=== PATIENT | female | born 1940 | race Caucasian/White ===

== ENCOUNTER 2017-05-01 21:16 | Observation (INO) | payer OTHER ==
--- NOTE | 2017-05-01 21:28 | CPEKG ---
Heart Rate: 58 RR Interval: 1034 P-R Interval: 168 QRSD Interval: 76 QT Interval: 436 QTC Interval: 429 P [place]: 58 QRS [place]: 50 T Wave [place]: 73 EKG Severity - NORMAL ECG - EKG Impression: SINUS RHYTHM Electronically Signed By: Grupo Rodriguez 04-May-2017 06:11:07
--- NOTE | 2017-05-01 21:40 | EDPHY ---
H & P Stated Complaint: HEARTBURN LIKE CHEST PAIN 20;30 TOOK NTG X1 NOW GONE HX OF ANGINA HPI/ROS: HPI CHIEF COMPLAINT: Chest pain relieved by nitroglycerin HISTORY OF PRESENT ILLNESS: This patient very pleasant 76-year-old female significant past medical history for coronary artery disease with stents she has 3 stents [place] [address] Kirk she presents to the emergency room as around 830 this evening she was packing her suitcase for recent trip to [place]. She states she has been very stressed recently her sister recently from an [place]. She has been stressed. She developed some chest discomfort in the substernal region he did radiate to her back. She describes a dull ache pressure sensation. Last 5-10 minutes. He was relieved by nitroglycerin. She tells me this feels similar to her previous angina. She now presents to the emergency room she is chest pain-free. She has no complaints at this time. She feels well. She is questioning if she needs to be here. She does not normally take nitroglycerin. Past Medical History: Coronary artery disease with stents Past Surgical History: PTCA Social History: Denies daily use of drugs alcohol tobacco products. Lives locally. Family History: Noncontributory ROS REVIEW OF SYSTEMS: A comprehensive 10 point review of systems is otherwise negative aside from elements mentioned in the history of present illness. Exam Constitutional appears well nontoxic, triage nursing summary reviewed, vital signs reviewed, awake/alert. Eyes normal conjunctivae and sclera, EOMI, PERRLA. HENT normal inspection, atraumatic, moist mucus membranes, no epistaxis, neck supple/ no meningismus, no raccoon eyes. Respiratory clear to auscultation bilaterally, normal breath sounds, no respiratory distress, no wheezing. Cardiovascular rate normal, regular rhythm, no murmur, no edema, distal pulses normal. Gastrointestinal soft, non-tender, no rebound, no guarding, normal bowel sounds, no distension, no pulsatile mass. Genitourinary no CVA tenderness. Musculoskeletal no midline vertebral tenderness, full range of motion, no calf swelling, no tenderness of extremities, no meningismus, good pulses, neurovascularly intact. Skin pink, warm, & dry, no rash, skin atraumatic. Neurologic awake, alert and oriented x 3, AAOx3, moves all 4 extremities equally, motor intact, sensory intact, CN II-XII intact, normal cerebellar, normal vision, normal speech. Psychiatric normal mood/affect. Heme/Lymph/Immune no lymphadenopathy. Differential diagnosis includes but is not limited to: ACS, atypical chest pain , pneumothorax, pneumonia, pulmonary embolism, aortic dissection, congestive heart failure, tumor, musculoskeletal pain, esophageal pain, GERD, peptic ulcer disease, pancreatitis Medical Decision Making: Plan for this patient full [employer], IV establishment, full-dose aspirin, she is chest pain-free at this time. Chest x- ray. Rule out acute coronary syndrome. Re-evaluation: EKG interpretation by me on record in [facility] system. Impression time of EKG 2125, sinus rhythm rate of 58, there is no acute ischemic change appreciated. Specifically no ST elevation ST depression or significant T-wave abnormalities. 2157: Plan for this patient rule out acute coronary syndrome. She is chest pain-free at this time. She will receive full-dose aspirin. 3: I spoke with the patient she agrees for admission overnight. Her EKG is nonischemic. Negative troponin. Chest x-ray has been reviewed. She is not having pleuritic pain. She is hemodynamically stable this time without chest pain. She agrees for admission. I spoke with the hospitalist service Dr. Harden. The hospitalist service agrees to admit this patient. Reason for admission chest pain with risk factors. Risk factors are underlying coronary artery disease with 3 stents. She is chest pain-free at this time. Chest pain-free at admission. Source: Patient - Personal History Current Tetanus/Diphtheria Vaccine: Yes Current Tetanus Diphtheria and Acellular Pertussis (TDAP): Yes Tetanus Vaccine Date: 2008 - Medical/Surgical History Hx Asthma: No Hx Chronic Respiratory Disease: No Hx Diabetes: No Hx Cardiac Disease: Yes Hx Renal Disease: No Hx Cirrhosis: No Hx Alcoholism: No Hx HIV/AIDS: No Hx Splenectomy or Spleen Trauma: No Other PMH: cholesterol. 3 cardiac stents in LED. l knee meniscus repair. Insulin Resistance - Social History Smoking Status: Never smoked Constitutional: Initial Vital Signs Temperature (C) 36.6 C 05/01/17 21:20 Heart Rate 54 L 05/01/17 21:20 Respiratory Rate 16 05/01/17 21:20 Blood Pressure 161/77 H 05/01/17 21:20 O2 Sat (%) 93 05/01/17 21:20 O2 Delivery Mode Room Air Allergies/Adverse Reactions: No Known Allergies Allergy (Verified 05/01/17 21:34) Home Medications: Medication Instructions Recorded Aspirin [Aspirin 81mg (*)] 81 mg PO DAILY 02/16/14 Herbals/Supplements -Info Only 1 ea PO DAILY 02/16/14 Carvedilol [Coreg (*)] 3.125 mg PO DAILY 03/03/14 Ezetimibe 10 mg PO DAILY 05/01/17 Nitroglycerin 0.4 mg SL TIDNITRATE PRN 05/02/17 Medical Decision Making - Data Points Laboratory Results: Laboratory Results 05/01/17 21:32 05/01/17 21:32 Medications Given: Discontinued Medications Aspirin Buffered (Aspirin Ec) 325 mg PO EDNOW ONE Stop: 05/01/17 22:00 Last Admin: 05/01/17 22:24 Dose: 325 mg Trazodone HCl (Trazodone) 50 mg PO HS PRN PRN Reason: Sleep/Insomnia Stop: 10/29/17 00:42 Last Admin: 05/02/17 00:57 Dose: 50 mg Departure - [facility] Clinical Impression: Chest pain Qualifiers: Chest pain type: unspecified Qualified Code(s): R07.9 - Chest pain, unspecified Condition: Fair
[2017-05-01 21:41] LABS: % IMMATURE GRANULYOCYTES 0.2 % (0.0-1.1); ABSOLUTE IMMATURE GRANULOCYTES 0.01 10^3/uL (0.00-0.10); ADD DIFF? NO; ADD MORPH? NO; ADD SCAN? NO; ATYPICAL LYMPHOCYTE FLAG 0 (0-99); FRAGMENT RBC FLAG 0 (0-99); HEMATOCRIT 40.8 % (38.0-47.0); HEMOGLOBIN 14.2 g/dL (12.6-16.3); LEFT SHIFT FLG 0 (0-99); LIPEMIA HEMOLYSIS FLAG 90 (0-99); MEAN CELL HEMOGLOBIN 33.5 pg (27.9-34.1); MEAN CELL HEMOGLOBIN CONCENTR. 34.8 g/dL (32.4-36.7); MEAN CELL VOLUME 96.2 fL (81.5-99.8); MEAN PLATELET VOLUME 9.9 fL (8.7-11.7); PLATELET CLUMPS FLAG 0 (0-99); PLATELET COUNT 163 10^3/uL (150-400); RED BLOOD CELL COUNT 4.24 10^6/uL (4.18-5.33); RED CELL DISTRIBUTION WIDTH 12.4 % (11.5-15.2)
[2017-05-01 21:51] LABS: ANION GAP 11 mEq/L (8-16); CALCIUM 9.7 mg/dL (8.5-10.4); CARBON DIOXIDE 25 mEq/l (22-31); CHLORIDE 104 mEq/L (97-110); CREATININE 0.8 mg/dL (0.6-1.0); GLOMERULAR FILTRATION RATE > 60; GLUCOSE 111 mg/dL (70-100); SODIUM 140 mEq/L (134-144)
[2017-05-01] MEDS ORDERED: ASPIRIN EC 325 MG TAB PO ONE (21:59)
[2017-05-01 22:02] LABS: TROPONIN I < 0.012 ng/mL (0-0.034)
[2017-05-02] MEDS ORDERED: ONDANSETRON 4 MG/2 ML VIAL IVP PRN (00:38)
[2017-05-02] MEDS ORDERED: ACETAMINOPHEN 325 MG TAB PO PRN (00:38)
[2017-05-02] MEDS ORDERED: ONDANSETRON DISINTEGRATING 4 MG TAB PO PRN (00:38)
[2017-05-02] MEDS ORDERED: NITROGLYCERIN 0.4 MG BTL SL PRN ×2 (00:41→13:37)
[2017-05-02] MEDS ORDERED: traZODone 100 MG TAB PO PRN (00:43)
--- NOTE | 2017-05-02 02:18 | PDGENHP ---
History and Physical - Chief Complaint Chest pain - History of Present Illness 76 yo F w/ hx of CAD presenting after episode of chest pain. She was packing a suitcase today and noticed acute onset of mid-sternal chest pain. She rated this as 5/10 severity, described it as needle-like, and had no associated radiation, diaphoresis, or shortness of breath. The pain lasted 2-3 minutes until she took a nitroglycerin and the pain immediately resolved. She has been experiencing increased emotional stress due to the recent of her sister from an [place]. She denies prior hx of [place]. In 2013 she began to experience anginal symptoms and then had an abnormal stress echo, leading to an angiogram and the placement of 3 cardiac stents. Since, he denies any anginal symptoms prior to today's episode. She is currently chest pain free and received ASA 324 mg in the ED. History Information - Allergies/Home Medication List Allergies/Adverse Reactions: No Known Allergies Allergy (Verified 05/01/17 21:34) Home Medications: Aspirin [Aspirin 81mg (*)] 81 mg PO DAILY 02/16/14 [Last Taken 04/28/15] Herbals/Supplements -Info Only 1 ea PO DAILY 02/16/14 [Last Taken 02/15/14] Carvedilol [Coreg (*)] 3.125 mg PO DAILY 03/03/14 [Last Taken 04/28/15] Ezetimibe 10 mg PO 05/01/17 [Last Taken Unknown] I have personally reviewed and updated: family history, medical history - Past Medical History coronary artery disease - Surgical History Reports: no pertinent surgical hx - Family History Positive for: CAD - Social History Smoking Status: Never smoked Alcohol Use: None Drug Use: None Review of Systems ROS: 10pt was reviewed & negative except for what was stated in HPI & below Physical Exam Temp Pulse Resp BP Pulse Ox 36.5 C 56 L 16 143/75 H 93 05/02/17 00:05 05/02/17 00:05 05/02/17 00:05 05/02/17 00:05 05/02/17 00:05 Constitutional: no apparent distress, appears nourished Eyes: PERRL, EOMI Ears, Nose, Mouth, Throat: moist mucous membranes, no oral mucosal ulcers Cardiovascular: regular rate and rhythym, no murmur, rub, or gallop Respiratory: no respiratory distress, clear to auscultation Gastrointestinal: normoactive bowel sounds, soft, non-tender abdomen Skin: warm, no rashes or abrasions Musculoskeletal: full muscle strength, no muscle tenderness Neurologic: AAOx3, CN II-XII Intact Psychiatric: interacting appropriately, not anxious Lab Data & Imaging Review 05/01/17 21:32 05/01/17 21:32 WBC 5.86 10^3/uL (3.80-9.50) 05/01/17 21:32 RBC 4.24 10^6/uL (4.18-5.33) 05/01/17 21:32 Hgb 14.2 g/dL (12.6-16.3) 05/01/17 21:32 Hct 40.8 % (38.0-47.0) 05/01/17 21:32 MCV 96.2 fL (81.5-99.8) 05/01/17 21:32 MCH 33.5 pg (27.9-34.1) 05/01/17 21:32 MCHC 34.8 g/dL (32.4-36.7) 05/01/17 21:32 RDW 12.4 % (11.5-15.2) 05/01/17 21:32 Plt Count 163 10^3/uL (150-400) 05/01/17 21:32 MPV 9.9 fL (8.7-11.7) 05/01/17 21:32 Neut % (Auto) 43.5 % (39.3-74.2) 05/01/17 21:32 Lymph % (Auto) 44.5 % (15.0-45.0) 05/01/17 21:32 C[place]ay % (Auto) 8.0 % (4.5-13.0) 05/01/17 21:32 Eos % (Auto) 2.9 % (0.6-7.6) 05/01/17 21:32 Baso % (Auto) 0.9 % (0.3-1.7) 05/01/17 21:32 Nucleat RBC Rel Count 0.0 % (0.0-0.2) 05/01/17 21:32 Absolute Neuts (auto) 2.55 10^3/uL (1.70-6.50) 05/01/17 21:32 Absolute Lymphs (auto) 2.61 10^3/uL (1.00-3.00) 05/01/17 21:32 Absolute Monos (auto) 0.47 10^3/uL (0.30-0.80) 05/01/17 21:32 Absolute Eos (auto) 0.17 10^3/uL (0.03-0.40) 05/01/17 21:32 Absolute Basos (auto) 0.05 10^3/uL (0.02-0.10) 05/01/17 21:32 Absolute Nucleated RBC 0.00 10^3/uL (0-0.01) 05/01/17 21:32 Immature Gran % 0.2 % (0.0-1.1) 05/01/17 21:32 Immature Gran # 0.01 10^3/uL (0.00-0.10) 05/01/17 21:32 Sodium 140 mEq/L (134-144) 05/01/17 21:32 Potassium 4.0 mEq/L (3.5-5.2) 05/01/17 21:32 Chloride 104 mEq/L (97-110) 05/01/17 21:32 Carbon Dioxide 25 mEq/l (22-31) 05/01/17 21:32 Anion Gap 11 mEq/L (8-16) 05/01/17 21:32 BUN 23 mg/dL (7-23) 05/01/17 21:32 Creatinine 0.8 mg/dL (0.6-1.0) 05/01/17 21:32 Estimated GFR > 60 05/01/17 21:32 Glucose 111 mg/dL (70-100) H 05/01/17 21:32 Calcium 9.7 mg/dL (8.5-10.4) 05/01/17 21:32 Troponin I < 0.012 ng/mL (0-0.034) 05/01/17 21:32 EKG Interpretation: Positive for: normal sinsus rhythm (No signs of ischemia) Assessment & Plan Assessment: 76 yo F w/ hx of CAD presenting with single episode of typical chest pain. Plan: 1. Typical chest pain - Sub-sternal, during period of emotional stress, and relieved with nitroglycerin. This is somewhat concerning noting patient denies any anginal symptoms over the last 3 years since placement of her cardiac stents. ECG and troponin on arrival to the ED unremarkable, although only 1-2 hours after episode of pain. - S/p ASA 324 in ED - Monitor on telemetry - Will not anticoagulate currently noting chest pain free and no objective evidence of ischemia - NPO @ [facility], cardiology consult in the AM - Nitro PRN ordered 2. Hx of CAD - With 3 stents placed in 2013 after abnormal stress echocardiogram. Denies prior hx of MIs. On BB, ASA, and ezetimibe as outpatient. Diet - NPO Ppx - LMWH Code - Full Dispo - Admit to observation
[2017-05-02 07:45] LABS: % IMMATURE GRANULYOCYTES 0.2 % (0.0-1.1); ABSOLUTE IMMATURE GRANULOCYTES 0.01 10^3/uL (0.00-0.10); ADD DIFF? NO; ADD MORPH? NO; ADD SCAN? NO; ATYPICAL LYMPHOCYTE FLAG 10 (0-99); FRAGMENT RBC FLAG 0 (0-99); HEMATOCRIT 39.9 % (38.0-47.0); HEMOGLOBIN 13.7 g/dL (12.6-16.3); LEFT SHIFT FLG 0 (0-99); LIPEMIA HEMOLYSIS FLAG 90 (0-99); MEAN CELL HEMOGLOBIN 33.3 pg (27.9-34.1); MEAN CELL HEMOGLOBIN CONCENTR. 34.3 g/dL (32.4-36.7); MEAN CELL VOLUME 97.1 fL (81.5-99.8); PLATELET CLUMPS FLAG 20 (0-99); PLATELET COUNT 147 10^3/uL (150-400); RED BLOOD CELL COUNT 4.11 10^6/uL (4.18-5.33); RED CELL DISTRIBUTION WIDTH 12.5 % (11.5-15.2)
[2017-05-02 07:58] LABS: ANION GAP 9 mEq/L (8-16); CALCIUM 9.3 mg/dL (8.5-10.4); CARBON DIOXIDE 24 mEq/l (22-31); CHLORIDE 109 mEq/L (97-110); CREATININE 0.6 mg/dL (0.6-1.0); GLOMERULAR FILTRATION RATE > 60; GLUCOSE 99 mg/dL (70-100); MAGNESIUM 2.1 mg/dL (1.6-2.3); POTASSIUM 4.1 mEq/L (3.5-5.2); SODIUM 142 mEq/L (134-144)
[2017-05-02 08:09] LABS: TROPONIN I < 0.012 ng/mL (0-0.034)
[2017-05-02] MEDS: ENOXAPARIN 40 MG/0.4 ML SYR SC SCH (09:42)
--- NOTE | 2017-05-02 10:46 | HOSPPROG ---
Hospitalist Progress Note Assessment/Plan: 76-year-old admitted with chest pain. This is similar to her previous angina prior to her stents 3 years ago. Patient discussed with Dr. Kirk who plans on doing a angiogram today. Disposition will depend on those results. Objective: Vital Signs Temp Pulse Resp BP Pulse Ox 36.6 C 50 L 16 129/51 H 94 05/02/17 07:38 05/02/17 07:38 05/02/17 07:38 05/02/17 07:38 05/02/17 07:38 Laboratory Results 05/02/17 07:00 05/02/17 07:00 05/01/17 05/02/17 05/03/17 05:59 05:59 05:59 Intake Total 200 Balance 200 - Physical Exam Constitutional: no apparent distress Cardiovascular: regular rate and rhythym Respiratory: no respiratory distress, clear to auscultation ICD10 Worksheet Patient Problems: Problems Problem Status Onset Chest pain Acute
[2017-05-02] MEDS ORDERED: LIDOCAINE 1% 300 MG/30 ML SDV ONE (12:20)
[2017-05-02] MEDS ORDERED: IOPAMIDOL (ISOVUE-370) 150 ML BTL IV ONE (12:20)
[2017-05-02] MEDS ORDERED: MIDAZOLAM 2 MG/2 ML VIAL ONE (12:20)
[2017-05-02] MEDS ORDERED: fentaNYL 100 MCG/2 ML INJ ONE (12:20)
[2017-05-02] MEDS ORDERED: ADENOSINE 90 MG/30 ML VIAL IV ONE (13:16)
[2017-05-02] MEDS ORDERED: BIVALIRUDIN 250 MG/5 ML VIAL IV ONE (13:16)
[2017-05-02] MEDS ORDERED: ATROPINE SULFATE 1 MG/10 ML SYR ONE (13:27)
--- NOTE | 2017-05-02 14:40 | GCON ---
[f rep st] CONSULTATION DATE OF CONSULTATION: 05/02/2017 REFERRING PHYSICIAN: Nancie Miller MD REASON FOR CONSULTATION: We have been asked by Dr. Miller to evaluate the patient with a chief compla int of chest pain. HISTORY OF PRESENT ILLNESS: The patient is a 76-year-old female with known coronary artery disease who presents with a chief complaint of chest pain. The patient was in her usual state of health unt il the day of admission, when she began to experience chest pain. The chest pain was described as a discomfort located over the left side of her chest. The chest pain did not radiate and was not ass ociated with nausea, vomiting, or diaphoresis. The patient took nitroglycerin with resolution of he r symptoms. She has not had recurrent chest pain. The patient states the chest pain is somewhat si milar to her previous anginal symptoms in 2013. However, it was not as severe as her previous angin al symptoms and it did not radiate into her left arm as it did before. The patient has been under c onsiderable amount of stress recently as her sister from a myocardial infarction. She i s planning on traveling to [place] for her services. The patient was active up until the [facility] and denied symptoms of angina with that activity . No history of orthopnea or PND. No palpitati ons. The patient has been taking her medications. PAST MEDICAL HISTORY: 1. Coronary artery disease. 2. Hypertension. 3. Hyperlipidemia. MEDICATIONS: Please see medicine reconciliation form. SOCIAL HISTORY: The patient has been under a fair amount of stress recently. She does not smoke. She denies problems with alcohol. REVIEW OF SYSTEMS: A 10-point review of systems is negative, except as noted in HPI. PHYSICAL EXAMINATION: GENERAL: The patient is resting comfortably in bed. She does not appear to be in acute distress. VITAL SIGNS: Temperature is afebrile. Pulse is 50. Blood pressure is 129/5 1. Respiratory rate is 16. SaO2 is 94% on room air. HEENT: Normocephalic, atraumatic. Extraocul ar muscles are intact. NECK: No JVD. No bruits. LUNGS: Clear to auscultation bilaterally. CARD IOVASCULAR: Regular rate and rhythm S1 and S2. Grade 2/6 systolic ejection murmur is noted at the left sternal border. ABDOMEN: Soft, nontender. Normoactive bowel sounds. No hepatosplenomegaly n oted. EXTREMITIES: No clubbing, cyanosis, or edema. SKIN: No evidence of rash. NEUROLOGICAL: T he patient is awake, alert, and oriented x3. LABORATORY DATA: White blood cell count 4.79, hemoglobin 13.7, hematocrit 39.9, platelet count 147. Sodium 142, potassium 4.1, chloride 109, CO2 24, BUN 20, creatinine 0.6. Troponin within normal l imits x2. EKG demonstrates sinus rhythm, normal axis, normal intervals. No significant ST or T-wav e changes. ASSESSMENT AND PLAN: The patient is a 76-year-old female with known coronary artery disease who pre sents with an episode of chest pain relieved by nitroglycerin. Her symptoms are similar to her prev ious angina in some respects but different in other respects. Her initial EKG demonstrates no acute ST or T-wave changes. Her troponin is within normal limits x2. I reviewed options for risk strati fication including stress testing and cardiac catheterization. The patient wishes to pursue cardiac catheterization. We will arrange to have this performed. Risks and benefits were discussed. /[id number]/MODL
--- NOTE | 2017-05-02 15:21 | CPIP ---
[f rep st] INVASIVE CARDIAC PROCEDURE DATE OF PROCEDURE: 05/02/2017 PROCEDURE: 1. Coronary angiography. 2. Left ventriculography. 3. FFR of the circumflex coronary artery. INDICATION: 1. Known coronary artery disease. 2. Acute coronary syndrome with negative troponin. ACCESS: The patient was prepped and draped in sterile fashion. 1% lidocaine was used to anesthetiz e the right inguinal region. A 6-Finnish introducer sheath was placed selectively in the right commo n femoral artery via modified Seldinger technique. CORONARY ANGIOGRAPHY: A 6-Finnish JL4 was advanced through the left main coronary artery and images obtained. The left main coronary artery bifurcated into an LAD and circumflex coronary arteries. T he left main coronary artery appeared normal. The left anterior descending coronary artery gave ris e to one prominent branching diagonal artery. The left anterior descending coronary artery had mild diffuse disease throughout. In the proximal mid vessel, previously placed stents can be seen. The previously placed stents are widely patent with mild in-stent restenosis. The first diagonal arter y is a moderate-sized vessel. The first diagonal artery is approximately 2 mm in diameter. The fir st diagonal artery has an ostial 70% to 75% stenosis present. This does not appear to be significan tly changed from the 2014 study. The circumflex coronary artery is a moderate-sized vessel. The ci rcumflex coronary artery is nondominant. Circumflex coronary artery has a proximal 50% to 70% steno sis present. This appears to have changed from 2014. A 6-Finnish JR4 was advanced to the right coronary artery and images obtained. The right coronary ar lorena was dominant. The right coronary artery is diffusely diseased. In the mid vessel, there is seq uential 30% to 40% stenosis present. The PDA had an ostial 70% stenosis present. The PDA is a rela tively is a small to moderate size vessel, approximately 1.5 to 2 mm in diameter. This is not signi ficantly changed from the 2014 study. LEFT VENTRICULOGRAPHY: A 6-Finnish pigtail catheter was advanced in the left ventricle and images ob tained. Left ventricle was normal in size, had normal systolic function. Estimated ejection fracti on was 70%. FFR OF THE CIRCUMFLEX CORONARY ARTERY: A 6-Finnish JL4 was advanced to the left main coronary artery and images obtained. Angiography confirmed the presence of intermediate grade disease involving th e proximal circumflex coronary artery. An FFR wire was placed in the distal vessel and position yancy ified by angiography. FFR was obtained after IV adenosine infusion. The FFR was 0.93, indicating n o flow limitation. COMPLICATIONS: None. CONCLUSIONS: 1. Patent LAD stents with mild in-stent restenosis. 2. 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 3. 50% to 70% stenosis of the proximal circumflex coronary artery with no evidence of flow limitati on by FFR. 4. Normal left ventricular size and systolic function. 5. Plan is for medical management. /[id number]/MODL
[2017-05-02] MEDS ORDERED: ZOLPIDEM TARTRATE 5 MG TAB PO PRN (18:41)
[2017-05-02] MEDS ORDERED: CANN-EASE 2 GM TUBE TP PRN (20:40)
[2017-05-02] MEDS ORDERED: diphenhydrAMINE 25 MG CAP PO PRN (20:40)
[2017-05-02] MEDS ORDERED: POLYETHYLENE GLYCOL 3350 17 GM PKT PO PRN (21:05)
[2017-05-03 07:35] VITALS: BP 147/75; PULSE 59; RESP 12; TEMP 98.2; O2SAT 93
[2017-05-03] MEDS: ENOXAPARIN 40 MG/0.4 ML SYR SC SCH (08:42)
[2017-05-03] MEDS ORDERED: ASPIRIN 81 MG CHEWABLE TAB PO SCH (09:00)
[2017-05-03] MEDS ORDERED: CARVEDILOL 3.125 MG TAB PO SCH (09:00)
[2017-05-03] MEDS ORDERED: EZETIMIBE 10 MG TAB PO SCH (09:00)
--- NOTE | 2017-05-03 09:22 | GDS ---
[f rep st] DISCHARGE SUMMARY DIAGNOSES: Chest pain in the setting of coronary artery disease. CONSULTATIONS: Cardiology. PROCEDURES DONE: Left heart catheterization, left ventriculography, and FFR of the circumflex coron rolan artery. Patent LAD stents with mild in-stent stenosis, intermediate branch vessel disease, foll owing the 1st diagonal artery and the PDA, that has not changed from 2014, and 50%-70% stenosis of t he proximal circumflex coronary artery with no evidence of flow limitation by FFR. Normal systolic function. HOSPITAL COURSE: The patient is a 76-year-old with a history of heart disease, who had stents place d previously. She is followed by Dr. Kirk as an outpatient. She comes in with an episode of ches t pain quite similar to her previous angina. She was admitted to the hospital, monitored overnight, and ruled out for [facility] with serial troponins. She went to the slab inspector with the above findings. She had no further chest pain during her hospitalization and will be discharged home with close followu p. CONDITION ON DISCHARGE: Good. Vital signs are stable. She is alert and oriented. No chest pain. DISCHARGE MEDICATIONS: Please see discharge medication form. FOLLOWUP: Dr. Krik when she returns from [place]. /[id number]/MODL
== END 2017-05-03 10:01 | disposition home or self-care (01) ==
LOC: F2W 05-02 00:16
PROVIDERS: ADMIT Student in an Organized Health Care Education/Training Program; ATTEND Student in an Organized Health Care Education/Training Program
PROC: B2151ZZ Fluoroscopy of Left Heart using Low Osmolar Contrast (ICD-10-PCS; principal; 2017-05-01)
PROC: B2111ZZ Fluoroscopy of Multiple Coronary Arteries using Low Osmolar Contrast (ICD-10-PCS; principal; 2017-05-01)
DX: I25.10 Atherosclerotic heart disease of native coronary artery without angina pectoris (principal); T82.855A Stenosis of coronary artery stent, initial encounter; I10 Essential (primary) hypertension; E78.5 Hyperlipidemia, unspecified
CPT/HCPCS: 71020; 93005; 93458; 93571; 99285; C1769; C1887; G0378; J0153; J0583; J1644; J1650; J2250; J3010; Q9967; J0461

== ENCOUNTER → 2017-06-29 | Outpatient (CLI) | payer OTHER | LOC: FIMAGING 14:06 | PROVIDERS: ATTEND Internal Medicine | DX: Z12.31 Encounter for screening mammogram for malignant neoplasm of breast (principal); M81.0 Age-related osteoporosis without current pathological fracture; Z78.0 Asymptomatic menopausal state; Z91.81 History of falling | CPT/HCPCS: G0202 ==

== ENCOUNTER 2017-07-14 12:13 | Emergency (ER) | payer OTHER ==
--- NOTE | 2017-07-14 14:34 | EDPHY ---
H & P Stated Complaint: LLE painful w/wt bearing today;had PT yesterday,no injury Time Seen by Provider: 07/14/17 14:16 HPI/ROS: CHIEF COMPLAINT: Left calf pain HISTORY OF PRESENT ILLNESS: The patient is a 76-year-old female who is very active who comes to the emergency department complaining of nontraumatic left leg pain. She states that it only hurts when she tries to bear weight. She states that it began this morning when she got out of bed and stood up, primarily in the left calf. It then radiated throughout her entire leg. She denies neck pain. 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 She went to physical therapy yesterday and did well. She felt well yesterday evening but then woke up today this pain. In the gurney or sitting down she denies having any pain. She has normal range of motion. No pain with axial loading etc. No warmth. No erythema or rash. No swelling. REVIEW OF SYSTEMS: Constitutional: denies: chills, fever, recent illness, recent injury EENTM: denies: blurred vision, double vision, nose congestion Respiratory: denies: cough, shortness of breath Cardiac: denies: chest pain, irregular heart rate, lightheadedness, palpitations Gastrointestinal/Abdominal: denies: abdominal pain, diarrhea, nausea, vomiting, blood streaked stools Genitourinary: denies: dysuria, frequency, hematuria, pain Musculoskeletal: See HPI Skin: denies: lesions, rash, jaundice, bruising Neurological: denies: headache, numbness, paresthesia, tingling, dizziness, weakness Hematologic/Lymphatic: denies: blood clots, easy bleeding, easy bruising Immunologic/allergic: denies: HIV/AIDS, transplant EXAM: GENERAL: Well-appearing, well-nourished and in no acute distress. HEAD: Atraumatic, normocephalic. EYES: Pupils equal round and reactive to light, extraocular movements intact, sclera anicteric, conjunctiva are normal. ENT: TMs normal, nares patent, oropharynx clear without exudates. Moist mucous membranes. NECK: Normal range of motion, supple without lymphadenopathy or JVD. LUNGS: Breath sounds clear to auscultation bilaterally and equal. No wheezes rales or rhonchi. HEART: Regular rate and rhythm without murmurs, rubs or gallops. ABDOMEN: Soft, nontender, normoactive bowel sounds. No guarding, no rebound. No masses appreciated. BACK: No CVA tenderness, no spinal tenderness, step-offs or deformities EXTREMITIES: Positive Homans, no edema. No pain with range of motion of hip knee and ankle joint. No pain with axial loading or rotation. NEUROLOGICAL: Cranial nerves II through XII grossly intact. Normal speech, normal gait. 5/5 strength, normal movement in all extremities, normal sensation PSYCH: Normal mood, normal affect. SKIN: Warm, dry, normal turgor, no visible rashes or lesions. Source: Patient Exam Limitations: No limitations - Personal History Current Tetanus Diphtheria and Acellular Pertussis (TDAP): Yes Tetanus Vaccine Date: 2008 - Medical/Surgical History Hx Asthma: No Hx Chronic Respiratory Disease: No Hx Diabetes: No Hx Cardiac Disease: Yes Hx Renal Disease: No Hx Cirrhosis: No Hx Alcoholism: No Hx HIV/AIDS: No Hx Splenectomy or Spleen Trauma: No Other PMH: cholesterol. 3 cardiac stents in LED. l knee meniscus repair. Insulin Resistance - Family History Significant Family History: No pertinent family hx - Social History Smoking Status: Never smoked Alcohol Use: Sober Drug Use: None Constitutional: Initial Vital Signs Temperature (C) 37.1 C 07/14/17 12:16 Heart Rate 60 07/14/17 12:16 Respiratory Rate 16 07/14/17 12:16 Blood Pressure 134/68 H 07/14/17 12:16 O2 Sat (%) 96 07/14/17 12:16 O2 Delivery Mode Room Air Allergies/Adverse Reactions: No Known Allergies Allergy (Verified 07/14/17 12:16) Home Medications: Medication Instructions Recorded Aspirin [Aspirin 81mg (*)] 81 mg PO DAILY 02/16/14 Carvedilol [Coreg (*)] 3.125 mg PO DAILY 03/03/14 Ezetimibe [Zetia 10 MG (*)] 10 mg PO 07/14/17 Medical Decision Making - Diagnostics Imaging Results: Imaging Impressions Extremity Venous Study 07/14/17 14:31 Impression: No deep venous thrombosis left leg. Findings discussed with Emergency Department physician, Bobby Maradiaga, at 1538 hours, 07/14/2017. Final report concurs with initial preliminary interpretation. Femur X-Ray 07/14/17 16:14 Impression: 1. No acute osseous abnormality seen left femur. 2. Small spur along the margin of the femoral head.. Pelvis X-Ray 07/14/17 16:14 Impression: Negative. No fracture or bone lesion to explain pain. Tibia/Fibula X-Ray 07/14/17 16:14 Impression: Negative. No explanation for pain. Imaging: Discussed imaging studies w/ inbound call center agent Radiologist ED Course/Re-evaluation: I had the patient get up and ambulate. While I was in the room she denied having any pain with ambulation and said that she must be feeling better. She states that she does have slight pain in her left calf went she leans on her toes. We will began with ultrasound of her lower extremity. 4:15 p.m. we discussed the ultrasound results which are reassuring. We discussed plan. Ultimately we decided to perform x-rays of her leg to rule out occult fracture. Patient is currently ambulating without pain. 5:30 p.m. the patient x-rays are negative. They feel reassured. She is ambulating without difficulty. I will discharge her at this time to follow up with Orthopedics. Differential Diagnosis: Partial list of the Differential diagnosis considered include but were not limited to; occult fracture, DVT, contusion and although unlikely based on the history and physical exam, I also considered infection, dislocation, vascular injury, ischemia. I discussed these differential diagnoses and the plan with the patient as well as the usual and expected course. The patient understands that the diagnosis is provisional and that in medicine we are not always correct and that further workup is often warranted. Usual and customary warnings were given. All of the patient's questions were answered. The patient was instructed to return to the emergency department should the symptoms at all worsen or return, otherwise to followup with the physician as we discussed. - Data Points Laboratory Results: Laboratory Results 07/14/17 14:51 07/14/17 14:51 07/14/17 07/14/17 07/14/17 14:51 14:51 14:51 WBC 5.81 10^3/uL 10^3/uL (3.80-9.50) RBC 4.22 10^6/uL 10^6/uL (4.18-5.33) Hgb 14.4 g/dL g/dL (12.6-16.3) Hct 41.0 % % (38.0-47.0) MCV 97.2 fL fL (81.5-99.8) MCH 34.1 pg pg (27.9-34.1) MCHC 35.1 g/dL g/dL (32.4-36.7) RDW 12.6 % % (11.5-15.2) Plt Count 168 10^3/uL 10^3/uL (150-400) MPV 9.8 fL fL (8.7-11.7) Neut % (Auto) 52.6 % % (39.3-74.2) Lymph % (Auto) 36.3 % % (15.0-45.0) Weber % (Auto) 7.9 % % (4.5-13.0) Eos % (Auto) 2.1 % % (0.6-7.6) Baso % (Auto) 0.9 % % (0.3-1.7) Nucleat RBC Rel Count 0.0 % % (0.0-0.2) Absolute Neuts (auto) 3.06 10^3/uL 10^3/uL (1.70-6.50) Absolute Lymphs (auto) 2.11 10^3/uL 10^3/uL (1.00-3.00) Absolute Monos (auto) 0.46 10^3/uL 10^3/uL (0.30-0.80) Absolute Eos (auto) 0.12 10^3/uL 10^3/uL (0.03-0.40) Absolute Basos (auto) 0.05 10^3/uL 10^3/uL (0.02-0.10) Absolute Nucleated RBC 0.00 10^3/uL 10^3/uL (0-0.01) Immature Gran % 0.2 % % (0.0-1.1) Immature Gran # 0.01 10^3/uL 10^3/uL (0.00-0.10) PT 13.2 SEC SEC (12.0-15.0) INR 1.01 (0.83-1.16) APTT 25.2 SEC SEC (23.0-38.0) Sodium 137 mEq/L mEq/L (134-144) Potassium 3.9 mEq/L mEq/L (3.5-5.2) Chloride 104 mEq/L mEq/L (97-110) Carbon Dioxide 23 mEq/l mEq/l (22-31) Anion Gap 10 mEq/L mEq/L (8-16) BUN 21 mg/dL mg/dL (7-23) Creatinine 0.6 mg/dL mg/dL (0.6-1.0) Estimated GFR > 60 Glucose 138 mg/dL H mg/dL (70-100) Calcium 9.5 mg/dL mg/dL (8.5-10.4) Departure - Departure Disposition: Home, Routine, Self-Care Clinical Impression: Pain in left leg Condition: Fair Instructions: Leg Pain (ED) Referrals: Kandi Manjarrez MD [Primary Care Provider] - As per Instructions Slade Cowan MD [Medical Doctor] - As per Instructions
[2017-07-14 15:00] LABS: % IMMATURE GRANULYOCYTES 0.2 % (0.0-1.1); ABSOLUTE IMMATURE GRANULOCYTES 0.01 10^3/uL (0.00-0.10); ADD DIFF? NO; ADD MORPH? NO; ADD SCAN? NO; ATYPICAL LYMPHOCYTE FLAG 0 (0-99); FRAGMENT RBC FLAG 0 (0-99); HEMOGLOBIN 14.4 g/dL (12.6-16.3); LEFT SHIFT FLG 0 (0-99); LIPEMIA HEMOLYSIS FLAG 90 (0-99); MEAN CELL HEMOGLOBIN 34.1 pg (27.9-34.1); MEAN CELL HEMOGLOBIN CONCENTR. 35.1 g/dL (32.4-36.7); MEAN CELL VOLUME 97.2 fL (81.5-99.8); MEAN PLATELET VOLUME 9.8 fL (8.7-11.7); PLATELET CLUMPS FLAG 0 (0-99); PLATELET COUNT 168 10^3/uL (150-400); RED BLOOD CELL COUNT 4.22 10^6/uL (4.18-5.33); RED CELL DISTRIBUTION WIDTH 12.6 % (11.5-15.2)
[2017-07-14 15:27] LABS: ANION GAP 10 mEq/L (8-16); CALCIUM 9.5 mg/dL (8.5-10.4); CARBON DIOXIDE 23 mEq/l (22-31); CHLORIDE 104 mEq/L (97-110); CREATININE 0.6 mg/dL (0.6-1.0); GLOMERULAR FILTRATION RATE > 60; GLUCOSE 138 mg/dL (70-100); POTASSIUM 3.9 mEq/L (3.5-5.2); SODIUM 137 mEq/L (134-144)
[2017-07-14 15:30] LABS: INR 1.01 (0.83-1.16); PROTIME(PATIENT) 13.2 SEC (12.0-15.0)
[2017-07-14 15:31] LABS: APTT 25.2 SEC (23.0-38.0)
[2017-07-14 17:36] VITALS: BP 121/75; PULSE 55; RESP 16; TEMP 97.9; O2SAT 91
== END 2017-07-14 17:51 | disposition home or self-care (01) ==
DX: M79.605 Pain in left leg (principal); Z79.82 Long term (current) use of aspirin; Z95.5 Presence of coronary angioplasty implant and graft

== ENCOUNTER → 2019-01-31 | Outpatient (CLI) | payer OTHER | LOC: FIMAGING 09:38 | PROVIDERS: ATTEND Internal Medicine | DX: M89.9 Disorder of bone, unspecified (principal); Z78.0 Asymptomatic menopausal state; M81.0 Age-related osteoporosis without current pathological fracture ==